=== PATIENT | female | born 1985 | race Caucasian/White ===

== ENCOUNTER 2017-10-29 15:24 | Emergency (ER) | payer OTHER ==
[2017-10-29 15:48] VITALS: BP 104/65; PULSE 94; RESP 18; TEMP 98; O2SAT 100
[2017-10-29] MEDS ORDERED: Sodium Chloride 0.9% 1,000 ML IV STA (16:05)
--- NOTE | 2017-10-29 16:16 | ED PDOC ---
Syncope/Near Syncope/Dizziness Time Seen by Provider: 10/29/17 15:51 Chief Complaint (Nursing): Syncope Chief Complaint (Provider): Syncope History Per: Patient History/Exam Limitations: no limitations Onset/Duration Of Symptoms: Hrs (2 hours prior to arrival) Current Symptoms Are (Timing): Still Present Number Of Syncopal Episodes: 1 Additional Complaint(s): 32 year old female with a past medical history of thyroid disease presents to the ED complaining of a syncopal episode, two hours prior to arrival. She is approximately 17 weeks and has not felt movement yet. Episode was witnessed by . Patient does not recall falling but admits to feeling dizzy before the episode. states she fell and hit the back of her head. The episode lasted 20 seconds. Patient denies chest pain, palpitations, blurry vision, seizures, vaginal bleeding and leakage. PMD: Dr. Rianna HURTADO Past Medical History Reviewed: Historical Data, Nursing Documentation, Vital Signs Vital Signs: Last Vital Signs Temp 98 F 10/29/17 15:41 Pulse 94 H 10/29/17 15:41 Resp 18 10/29/17 15:41 BP 104/65 10/29/17 15:41 Pulse Ox 100 10/29/17 15:41 - Medical History Other PMH: thyroid disease - Surgical History Surgical History: No Surg Hx - Family History Family History: States: Unknown Family Hx - Allergies Allergies/Adverse Reactions: Allergies Allergy/AdvReac Type Severity Reaction Status Date / Time No Known Allergies Allergy Verified 10/29/17 15:41 Review of Systems ROS Statement: Except As Marked, All Systems Reviewed And Found Negative Constitutional: Positive for: Other (Syncopal episode) Eyes: Negative for: Vision Change Cardiovascular: Negative for: Chest Pain, Palpitations Genitourinary Female: Negative for: Vaginal Bleeding (or leakage) Neurological: Positive for: Dizziness. Negative for: Seizures Physical Exam - Reviewed Nursing Documentation Reviewed: Yes Vital Signs Reviewed: Yes - Physical Exam Appears: Positive for: Non-toxic, No Acute Distress Head Exam: Positive for: ATRAUMATIC, NORMOCEPHALIC Skin: Positive for: Normal Color, Warm, Dry Eye Exam: Positive for: Normal appearance, PERRL, Other (EOM weakness in left lateral rectus. Patient states this is from prior history ). Negative for: EOMI Neck: Positive for: Normal, Painless ROM, Supple Cardiovascular/Chest: Positive for: Regular Rate, Rhythm Respiratory: Positive for: Normal Breath Sounds. Negative for: Wheezing Gastrointestinal/Abdominal: Positive for: Normal Exam, Soft, Other (Gravid uterus approx. 17 weeks ). Negative for: Tenderness Back: Positive for: Normal Inspection. Negative for: L CVA Tenderness, R CVA Tenderness, Vertebral Tenderness, Other (deformity) Extremity: Positive for: Normal ROM. Negative for: Deformity Neurologic/Psych: Positive for: Alert, Oriented (x 3). Negative for: Motor/ Sensory Deficits - Laboratory Results Result Diagrams: 10/29/17 17:23 10/29/17 17:23 - ECG O2 Sat by Pulse Oximetry: 100 (RA) Pulse Ox Interpretation: Normal Medical Decision Making Medical Decision Making: Time: 16:04 Initial Plan: --EKG --Beta-HCG --CMP --CBC with differentials --Normal saline IV 150 mls/hr --OB US Time: 18:06 --Potassium Chloride 20 meq PO Re-eval Awake alert No focal neuro deficits. CT head not done as risks of radiation to fetus outweigh benefit. Given nl neuro exam and re-eval unlikely to be positive. Scribe Attestation: Documented by Maryellen Melgar, acting as a scribe for Devaughn Martin MD Provider Scribe Attestation: All medical record entries made by the Scribe were at my direction and personally dictated by me. I have reviewed the chart and agree that the record accurately reflects my personal performance of the history, physical exam, medical decision making, and the department course for this patient. I have also personally directed, reviewed, and agree with the discharge instructions and disposition. Disposition - Clinical Impression Clinical Impression: Syncope - Patient ED Disposition Is Patient to be Admitted: No Counseled Patient/Family Regarding: Studies Performed, Diagnosis, Need For Followup - Disposition [facility] Disposition: Routine/Home Disposition Time: 19:21 Condition: FAIR Instructions: Syncope (Fainting), Closed Head Injury, Concussion in Adults Forms: [facility] (Yi)
[2017-10-29 17:43] LABS: BASO % 0.6 % (0.0-2.0); EOS # 0.1 K/uL (0.0-0.7); EOS % 0.8 % (0.0-4.0); HEMOGLOBIN 10.9 g/dL (12.0-16.0); LYMPH # 1.1 K/uL (1.0-4.3); LYMPH % 13.6 % (20.0-40.0); MEAN CORPUSCULAR HEMOGLOBIN 32.6 pg (27.0-31.0); MEAN CORPUSCULAR HGB CONC 34.3 g/dL (33.0-37.0); MEAN PLATELET VOLUME 7.4 fl (7.2-11.7); MONO # 0.5 K/uL (0.0-0.8); NEUT # 6.3 K/uL (1.8-7.0); RBC 3.34 Mil/uL (3.80-5.20); RED CELL DISTRIBUTION WIDTH 14.2 % (11.5-14.5)
[2017-10-29 17:51] LABS: ALB/GLOB RATIO 1.1 (1.0-2.1); ALBUMIN 3.4 g/dL (3.5-5.0); ALT/SGPT 34 U/L (9-52); AST/SGOT 26 U/L (14-36); BLOOD UREA NITROGEN 10 mg/dl (7-17); CALCIUM 8.5 mg/dL (8.4-10.2); GFR AFRICAN-AMERICAN > 60; GFR NON-AFRICAN AMERICAN > 60
[2017-10-29] MEDS ORDERED: Potassium Chloride 20 mEq ER Tab PO ONE ×2 (18:06→18:14)
--- NOTE | 2017-10-30 09:41 | CARD ---
APPROVED REPORT EKG Measurement Heart [id number] <Conclusion> Normal sinus rhythm Possible Left atrial enlargement Borderline ECG
--- NOTE | 2017-11-01 10:38 | US ---
PROCEDURE: OB Pelvic Ultrasound HISTORY: Decreased movement LMP: 07/05/2017 suggesting an estimated gestational age of 16 weeks 4 days. COMPARISON: None available. FINDINGS: UTERUS: Gestational sac: A single viable intrauterine gestation is identified within the endometrial cavity with cardiac activity recorded 147 beats per minute. An anterior fundal placenta is developing with no definite pattern to suggest placental abruption or previa. The following mean biometry was acquired: BPD 3.8 cm corresponds 17 weeks 3 days. HC 13.4 cm corresponds to 17 weeks 0 days. AC 10.7 cm corresponds to 16 weeks 4 days. FL 2.3 cm corresponds to 17 weeks 0 days. age (Ultrasound estimated): 17 weeks 1 day. HC/AC ratio 1.25 which falls within the normal range. Estimated weight 171. 280 g standard deviation. Sil-gestational hemorrhage: None apparent. Date of delivery (Ultrasound estimated) : 04/11/2018. CERVIX: Measures 5.0 cm. Long and closed. No cervical abnormality seen. RIGHT OVARY: Not identified. No suspicious adnexal mass or fluid collection appreciable. LEFT OVARY: Not identified. No suspicious adnexal mass or fluid collection appreciable. FREE FLUID: None. OTHER FINDINGS: None. IMPRESSION: A single viable intrauterine gestation is identified apparently in breech lie with an average ultrasonic age of 17 weeks 0 days, concordant with LMP derived dates. cardiac activity is positive at 147 beats per minute. No placental abruption or previa. anatomical survey was not performed in this emergent ultrasound exam and can be performed electively as indicated. Concordant preliminary report from [facility], 10/29/2017. BIRADS 1 Negative Recommendation: Continue annual screening mammography, as per ACR guidelines. Concordant preliminary report from [facility],
== END 2017-10-29 19:50 | disposition home or self-care (01) ==
LOC: H.ER 15:24
DX: R55 Syncope and collapse (principal); E07.9 Disorder of thyroid, unspecified
CPT/HCPCS: 76815; 80053; 82948; 84702; 85025; 93005; 99285; J7040